=== PATIENT | female | born 1985 | race Two or more races ===

== ENCOUNTER 2019-01-23 19:57 | Emergency (ER) | payer SELFPAY ==
[2019-01-23] MEDS ORDERED: Lidocaine 2% Viscous Solution 15 ML Cup PO ONE (20:05)
[2019-01-23] MEDS ORDERED: Benzocaine 20% Topical Spray UD MUCMEM ONE (20:05)
--- NOTE | 2019-01-23 20:06 | EDM.PDOC ---
ED HPI GENERAL MEDICAL PROBLEM - General Chief Complaint: ENT Problem Stated Complaint: PT HAS CRACK TOOTH Time Seen by Provider: 01/23/19 20:05 Source of Information: Reports: Patient History Limitations: Reports: No Limitations - History of Present Illness INITIAL COMMENTS - FREE TEXT/NARRATIVE: HISTORY AND PHYSICAL: History of present illness: she is a 33-year-old female presents to the ED with complaint of tooth pain.she states she broke her left upper molar last week. She is visiting her here until April is not established with a dentist yet. She denies fevers or chills and is otherwise in her usual state of good health. Review of systems: As per history of present illness and below otherwise all systems reviewed and negative. Past medical history: As per history of present illness and as reviewed below otherwise noncontributory. Surgical history: As per history of present illness and as reviewed below otherwise noncontributory. Social history: No reported history of drug or alcohol abuse. Family history: As per history of present illness and as reviewed below otherwise noncontributory. Physical exam: General: Patient sitting comfortably in no acute distress and nontoxic appearing HEENT: Poor dentition throughout. There is a broken tooth with exposed nurve root. Atraumatic, normocephalic, pupils reactive, negative for conjunctival pallor or scleral icterus, mucous membranes moist, throat clear, neck supple, nontender, trachea midline. No meningeal signs. Lungs: Clear to auscultation, breath sounds equal bilaterally, chest nontender. Heart: S1S2, regular, negative for clicks, rubs, or overt murmur. Abdomen: Soft, nondistended, nontender. Negative for masses or hepatosplenomegaly. Negative for costovertebral tenderness. No rigidity, rebound , guarding. Pelvis: Stable nontender. Genitourinary: Deferred. Rectal: Deferred. Extremities: Atraumatic, negative for cords or calf pain. Neurovascular unremarkable. Neuro: Awake, alert, oriented. Cranial nerves II through XII unremarkable. Cerebellum unremarkable. Motor and sensory unremarkable throughout. Exam nonfocal. Notes: Diagnostics: None Therapeutics: Dental temporary cement Dental balls Prescriptions: Tylenol #3 Augmentin Impression: Dentalgia Plan: 1. Use dental balls as instructed, tylenol #3 as needed for severe pain. Do not take while driving as it may make you drowsy 2. Follow up with dentist 3. Return to ED as needed as discussed Definitive disposition and diagnosis as appropriate pending reevaluation and review of above. Left Oral/Mouth Pain Score (Numeric/FACES): 8 - Related Data Allergies Allergy/AdvReac Type Severity Reaction Status Date / Time ibuprofen Allergy Itching Verified 01/23/19 20:03 ketorolac [From Toradol] Allergy Itching Verified 01/23/19 20:03 morphine Allergy Hives Verified 01/23/19 20:03 Home Meds: Home Meds Amoxicillin/Potassium Clav [Augmentin 875-125 Tablet] 1 each PO BID 7 Days #14 tablet 01/23/19 [Rx] ED ROS ENT - Review of Systems Review Of Systems: ROS reveals no pertinent complaints other than HPI. ED EXAM, ENT - Physical Exam Exam: See Below (see dictation) Course - Vital Signs Last Recorded V/S: Last Vital Signs Temp 97.2 F 01/23/19 20:04 Pulse 62 01/23/19 20:04 Resp 18 01/23/19 20:04 BP 111/66 01/23/19 20:04 Pulse Ox 98 01/23/19 20:04 - Orders/Labs/Meds Meds: Medications Discontinued Medications Generic Name Dose Route Start Last Admin Trade Name Freq PRN Reason Stop Dose Admin Benzocaine 2 each 01/23/19 20:05 01/23/19 20:14 Hurricaine One 20% MUCMEM 01/23/19 20:06 2 each ONETIME ONE Administration Lidocaine HCl 15 ml 01/23/19 20:05 01/23/19 20:14 Xylocaine 2% Viscous PO 01/23/19 20:06 15 ml ONETIME ONE Administration Departure - Departure Time of Disposition: 20:36 Disposition: Home, Self-Care 01 Condition: Good Clinical Impression: Dentalgia - Discharge Information Forms: ED Department Discharge Additional Instructions: The following information is given to patients seen in the emergency department who are being discharged to home. This information is to outline your options for follow-up care. We provide all patients seen in our emergency department with a follow-up referral. The need for follow-up, as well as the timing and circumstances, are variable depending upon the specifics of your emergency department visit. If you don't have a primary care physician on staff, we will provide you with a referral. We always advise you to contact your personal physician following an emergency department visit to inform them of the circumstance of the visit and for follow-up with them and/or the need for any referrals to a consulting specialist. The emergency department will also refer you to a specialist when appropriate. This referral assures that you have the opportunity for follow-up care with a specialist. All of these measure are taken in an effort to provide you with optimal care, which includes your follow-up. Under all circumstances we always encourage you to contact your private physician who remains a resource for coordinating your care. When calling for follow-up care, please make the office aware that this follow-up is from your recent emergency room visit. If for any reason you are refused follow-up, please contact the [facility] Emergency Department at and asked to speak to the emergency department charge nurse. [facility] [address] [place] [id number] [facility] [address] [place] [id number] 1. Use dental balls as instructed, tylenol #3 as needed for severe pain. Do not take while driving as it may make you drowsy 2. Follow up with dentist 3. Return to ED as needed as discussed
== END 2019-01-23 20:47 | disposition home or self-care (01) ==
LOC: MW.ED 19:57
DX: K08.89 Other specified disorders of teeth and supporting structures (principal); Z88.6 Allergy status to analgesic agent; Z88.5 Allergy status to narcotic agent
CPT/HCPCS: 99282; A9270